=== PATIENT | female | born 1985 | race African-American/Black ===

== ENCOUNTER 2017-08-11 19:18 | Emergency (ER) | payer SELFPAY ==
[~2017-08-11] VITALS: Ht 165.1 cm; Wt 95.5 kg
[2017-08-11 19:42] VITALS: BP 142/67; PULSE 83; RESP 16; TEMP 99.2; O2SAT 100
[2017-08-11] MEDS ORDERED: KETOROLAC TROMETHAMINE 60 MG/2 ML (IM) VIAL IM ONE (21:00)
--- NOTE | 2017-08-11 21:07 | PD ---
HPI Chief Complaint: Injury Time Seen by Provider: 20:26 Travel History International Travel<30 days: No Contact w/Intl Traveler<30days: No Traveled to known affect area: No History of Present Illness HPI 32-year-old female came to the emergency room with history of fall at around 4 PM from her porch. Patient says the porch is about 5-6 feet high. She landed on her right shoulder. Since then she has been in severe pain. It hurts to move her arm. Patient says that she also landed on her right knee and right leg but that does not bother her that much. Vital signs are stable. She is otherwise a healthy person. [facility] Past Medical History Narrative Medical List of her past medical, surgical, social and family history reviewed from the nursing note. Medical History: Denies Significant Hx Influenza Vaccination: Yes ?: Not LMP: CURRENTLY : 5 Tubal Ligation: Yes Past Surgical History Abdominal Surgery: Yes (HERNIA ) Section: Yes (X2) Other Surgery: Yes (LEFT ANKLE ) Social History Alcohol Use: No Tobacco Use: No Substance Use: No Allergies-Medications (Allergen,Severity, Reaction): Coded Allergies: latex (Verified Allergy, Severe, 08/11/17) Comments List of her allergies reviewed from the nursing note. Reported Meds & Prescriptions Reported Meds & Active Scripts Active Ibuprofen 600 Mg Tab 600 Mg PO Q6H PRN Narrative Medication List of her home medication reviewed from the nursing note. Review of Systems Except as stated in HPI: all other systems reviewed are Neg Musculoskeletal: Positive: Pain Physical Exam Narrative GENERAL: Awake, alert, moderate distress, obese SKIN: Focused skin assessment warm/dry. Bruise on the right shoulder HEAD: Atraumatic. Normocephalic. EYES: Pupils equal and round. No scleral icterus. No injection or drainage. ENT: No nasal bleeding or discharge. Mucous membranes pink and moist. NECK: Trachea midline. No JVD. CARDIOVASCULAR: Regular rate and rhythm. No murmur appreciated. RESPIRATORY: No accessory muscle use. Clear to auscultation. Breath sounds equal bilaterally. GASTROINTESTINAL: Abdomen soft, non-tender, nondistended. Hepatic and splenic margins not palpable. MUSCULOSKELETAL: No obvious deformities. No clubbing. No cyanosis. No edema. Significant tenderness on palpation of her right clavicle and shoulder. Decreased range of motion due to the pain NEUROLOGICAL: Awake and alert. No obvious cranial nerve deficits. Motor grossly within normal limits. Normal speech. PSYCHIATRIC: Appropriate mood and affect; insight and judgment normal. Data Data Last Documented VS Vital Signs Date Time Temp Pulse Resp B/P (MAP) Pulse Ox O2 Delivery O2 Flow Rate FiO2 08/11/17 19:42 99.2 83 16 142/67 (92) 100 Orders Orders Clavicle (08/11/17 ) Ketorolac Inj (Toradol Inj) (08/11/17 21:00) Shoulder, Limited(2vws) (08/11/17 ) Sling Cradle Arm (08/11/17 ) Ed Discharge Order (08/11/17 21:44) Sling Cradle Arm (08/11/17 ) [facility] Medical Decision Making Medical Screen Exam Complete: Yes Emergency Medical Condition: Yes Medical Record Reviewed: Yes Differential Diagnosis Shoulder fracture, clavicle fracture, shoulder dislocation, shoulder strain Narrative Course 9:50 PM patient was medicated for pain. X-ray of her right shoulder and right clavicle has been read as unremarkable by the radiologist. I am comfortable discharging her home on arm sling. Procedures EKG Prior to Arrival: No Diagnosis Primary Impression: Fall Qualified Codes: W19.XXXA - Unspecified fall, initial encounter Additional Impressions: Shoulder strain Qualified Codes: S46.911A - Strain of unspecified muscle, fascia and tendon at shoulder and upper arm level, right arm, initial encounter Contusion Qualified Codes: S40.011A - Contusion of right shoulder, initial encounter Referrals: Primary Care Physician 2 days Additional Instructions: Keep the shoulder sling on until you have seen primary care physician preferably within the next couple days. ER on should not be in the sling for more than 2-3 days otherwise will develop frozen shoulder. After that he can slowly start moving and ranging the arm. Take the medication as per the prescription direction. Apply ice compress over the injured part. Med/Other Pt SpecificInfo: Prescription(s) given Scripts Ibuprofen (Ibuprofen) 600 Mg Tab 600 MG PO Q6H Y for Pain/Inflammation, #40 TAB 0 Refills Prov: Daria Garcia MD 08/11/17 Disposition: 01 DISCHARGE HOME Condition: Stable Daria Garcia MD Aug 11, 2017 21:07
--- NOTE | 2017-08-11 21:37 | RADRPT ---
EXAM DATE/TIME: 08/11/2017 21:13 [facility] COMPARISON: No previous studies available for comparison. INDICATIONS : Patient fell and complains of right shoulder pain and limited ROM. MEDICAL HISTORY : None. SURGICAL HISTORY : None. ENCOUNTER: Initial ACUITY: 1 day PAIN SCORE: 10/10 LOCATION: Right Shoulder FINDINGS: Two view examination of the right shoulder demonstrates no evidence of fracture or dislocation. The glenohumeral and acromioclavicular joints are maintained. Bony mineralization is normal. CONCLUSION: Normal examination for a patient of this age. Yevgeniy Kendrick MD on August 11, 2017 at 21:35 Board Certified Radiologist. This report was verified electronically.
--- NOTE | 2017-08-11 21:38 | RADRPT ---
EXAM DATE/TIME: 08/11/2017 21:17 [facility] COMPARISON: No previous studies available for comparison. INDICATIONS : Patient fell and complains of right clavicle pain. MEDICAL HISTORY : None. SURGICAL HISTORY : None. ENCOUNTER: Initial ACUITY: 1 day PAIN SCORE: 10/10 LOCATION: Right Clavicle. FINDINGS: Two view examination of the right clavicle demonstrates no evidence of fracture. The sternoclavicula r joints and acromioclavicular joints are maintained. Bony mineralization is normal. CONCLUSION: Unremarkable examination of the right clavicle. Yevgeniy Kendrick MD on August 11, 2017 at 21:35 Board Certified Radiologist. This report was verified electronically.
[2017-08-11] MEDS ORDERED: IBUP-232 PO (21:47)
== END 2017-08-11 22:15 | disposition home or self-care (01) ==
LOC: NEPD 19:18
DX: S46.911A Strain of unspecified muscle, fascia and tendon at shoulder and upper arm level, right arm, initial encounter (principal); S40.011A Contusion of right shoulder, initial encounter; W17.89XA Other fall from one level to another, initial encounter
CPT/HCPCS: 73000; 73030; 96372; 99283; J1885